=== PATIENT | male | born 1955 | race Caucasian/White ===

== ENCOUNTER 2020-10-24 07:09 | Outpatient (RCR) | payer BC, MEDICARE ==
[~2020-10-24] VITALS: Ht 188 cm; Wt 88.0 kg
[2020-10-28] MEDS ORDERED: OMEP40CA6 PO (13:49)
[2020-11-05] MEDS ORDERED: PANT40TA2 PO (13:39)
[2020-11-05] MEDS ORDERED: SUCR1TAB36 PO (13:39)
== END 2020-11-04 10:37 | disposition home or self-care (01) ==
LOC: PREOP 07:09
PROVIDERS: ATTEND Surgery
DX: Z01.818 Encounter for other preprocedural examination (principal)

== ENCOUNTER 2020-11-05 12:30 | Day surgery (SDC) | payer BC, MEDICARE ==
[2020-11-05] VITALS (8 sets, daily range): BP systolic 107–142; BP diastolic 68–80
[~2020-11-05] VITALS: Ht 188 cm; Wt 88.0 kg
[~2020-11-05 12:30] MED LIST: OMEP40CA6 PO
[2020-11-05] MEDS ORDERED: LACTATED RINGERS 1,000 ML IV STA (12:31)
[2020-11-05] MEDS ORDERED: LACTATED RINGERS 1,000 ML IV ONE (12:37)
--- NOTE | 2020-11-05 12:39 | Progress Note-Pre Operative ---
Pre-Operative Progress Note H&P Reviewed The H&P was reviewed, patient examined and no changes noted. Date Seen by Provider: Nov 05, 2020 Time Seen by Provider: 12:39 Date H&P Reviewed: Nov 05, 2020 Time H&P Reviewed: 12:39 Pre-Operative Diagnosis: dysphagia, hx of polyps ROMANA GARCIA DO Nov 05, 2020 12:39
[2020-11-05] MEDS ORDERED: MIDAZOLAM 2 MG/2 ML (VERSED) VIAL ONE (12:44)
[2020-11-05] MEDS ORDERED: PROPOFOL INJECTION 50 ML IV ONE ×2 (12:45→13:19)
[2020-11-05] MEDS ORDERED: HURRICAINE EXT TUBE (BENZOCAINE) XX PRN (12:45)
[2020-11-05] MEDS ORDERED: SUCR1TAB36 PO (13:39)
[2020-11-05] MEDS ORDERED: PANT40TA2 PO (13:39)
--- NOTE | 2020-11-05 13:39 | Discharge Inst-Simple/Standard ---
Discharge Inst-Standard Discharge Medications New, Converted or Re-Newed RX: Transmitted to Pharmacy Patient Instructions/Follow Up Plan of Care/Instructions/FU: 2-3 weeks Kassidy Activity as Tolerated: Yes Discharge Diet: Regular Diet ROMANA GARCIA DO Nov 05, 2020 13:39
--- NOTE | 2020-11-05 13:41 | Progress Note-Post Operative ---
Post-Operative Progess Note Surgeon (s)/Solar Installation Crew Supervisor (s) Surgeon ROMANA GARCIA DO Solar Installation Crew Supervisor: na Pre-Operative Diagnosis dysphagia, hx of polyps Post-Operative Diagnosis erosive esophagitis, diverticulosis, internal hemorrhoids, colon polyps Procedure & Operative Findings Date of Procedure 11/05/20 Procedure Performed/Findings egd c biopsies, colonoscopy with hot bx polypectomy x 6 Anesthesia Type per map and chart mounter Estimated Blood Loss Estimated blood loss (mL): none Specimens/Packing Specimens Removed antrum, ge, colon polyps ROMANA GARCIA DO Nov 05, 2020 13:41
--- NOTE | 2020-11-05 14:36 | Anesthesia-General Post-Op ---
MAC Patient Condition Mental Status/LOC: Same as Preop Cardiovascular: Satisfactory Nausea/Vomiting: Absent Respiratory: Satisfactory Pain: Controlled Complications: Absent Post Op Complications Complications None Follow Up Care/Instructions Patient Instructions None needed. Anesthesiology Discharge Order Discharge Order Patient is doing well, no complaints, stable vital signs, no apparent adverse anesthesia problems. No complications reported per nursing. MARÍA YUEN CRNA Nov 05, 2020 14:36
--- NOTE | 2020-11-05 22:24 | OPERATIVE REPORT ---
DATE OF SERVICE: 11/05/2020 PREOPERATIVE DIAGNOSES: Dysphagia and history of polyps. POSTOPERATIVE DIAGNOSES: Erosive esophagitis, diverticulosis, internal hemorrhoids, and colon polyps. PROCEDURES PERFORMED: EGD with biopsies, colonoscopy with hot biopsy polypectomy x6. SURGEON: Romana Yi DO. ANESTHESIA: Per EMERGENCY ROOM RN. ESTIMATED BLOOD LOSS: None. COMPLICATIONS: None. INDICATIONS FOR PROCEDURE: The patient is a 65-year-old male with dysphagia symptoms and history of polyps. He understands the risks and benefits of the procedures and wished to proceed with the procedure. Consent was signed in the chart. DESCRIPTION OF PROCEDURE: The patient was taken to the endoscopy suite and placed in a left lateral recumbent position. Timeout was performed. Scope was inserted in the mouth, down the esophagus, stomach and into the duodenum without difficulty. There were no polyps, masses or ulcerations within the duodenum. Scope was slowly retracted back in the stomach, where it was further insufflated. No polyps, masses or ulcerations. Biopsy of the antrum was obtained. Scope was retroflexed noting no other pathology. Scope was returned to its normal position, slowly withdrawn to distal esophagus, which had erosive esophagitis appearance. No erosions all the way up to about the mid portion of the esophagus. Multiple biopsies of the GE junction were obtained. Scope was then slowly retracted back until completely removed. Digital rectal exam was performed noting some internal hemorrhoids. No palpable polyps, masses or ulcerations. Scope was inserted in the rectum and advanced all the way to the cecum with minimal difficulty. Prep was adequate. Scope was then slowly retracted back. There were no polyps, masses or ulcerations in the cecum. In the ascending colon, there were three polyps, which hot biopsy polypectomy was performed. Scope was then continuously and slowly retracted back. In the transverse colon, another three polyps were present, which hot biopsy polypectomies were performed. Scope was then continuously and slowly retracted back through the descending colon and sigmoid colon, only noting some diverticulosis. Once in the rectum, scope was retroflexed noting some hemorrhoids. No other pathology. Scope was returned to its normal position, slowly withdrawn until completely removed. The patient tolerated the procedure well without any complications and taken to the recovery room in stable condition. RECOMMENDATIONS: The patient will be switched from omeprazole to Protonix 40 mg daily and started on Carafate 1 gram four times a day. We will follow up in the office on pathology in about three weeks. Repeat colonoscopy in five years. Any issues before that be seen at that time. CC: Dr. Estevez -- requested, unable to deliver. Job ID: [id number] DocumentID: [id number] Dictated Date: 11/05/2020 13:43:42 Cyber Workforce Developer And Manager Date: 11/05/2020 21:28:30 Dictated By: ROMANA YI DO
== END 2020-11-05 14:40 | disposition home or self-care (01) ==
LOC: ENDO 12:30
PROVIDERS: ATTEND Surgery
DX: Z12.11 Encounter for screening for malignant neoplasm of colon (principal); D12.2 Benign neoplasm of ascending colon; D12.3 Benign neoplasm of transverse colon; K57.30 Diverticulosis of large intestine without perforation or abscess without bleeding; K64.8 Other hemorrhoids; K22.10 Ulcer of esophagus without bleeding; K21.00 Gastro-esophageal reflux disease with esophagitis, without bleeding; Z87.891 Personal history of nicotine dependence; Z20.822 Contact with and (suspected) exposure to COVID-19
CPT/HCPCS: 87635

== ENCOUNTER → 2021-07-31 | Outpatient (CLI) | payer MEDICARE ==
[~2021-07-31] MED LIST changes: +PANT40TA2 PO; +SUCR1TAB36 PO
--- NOTE | 2021-07-31 12:49 | Diagnostic Imaging Report ---
PROCEDURE: CT head without contrast. TECHNIQUE: Multiple contiguous axial images were obtained through the brain without the use of intravenous contrast. Auto Exposure Controls were utilized during the CT exam to meet ALARA standards for radiation dose reduction. INDICATION: Bilateral leg weakness. COMPARISON: No prior studies are available for comparison. FINDINGS: Ventricles and sulci are within normal limits. No sulcal effacement or midline shift is identified. No acute intra-axial or extra-axial hemorrhage is detected. Cisterns are patent. Visualized paranasal sinuses demonstrate mucosal thickening of the right maxillary sinus. There is near-complete opacification of the left maxillary sinus. There is mucosal thickening and opacified multiple ethmoid air cells. The frontal sinus and mastoid air cells are well aerated. IMPRESSION: 1. No acute intracranial process detected. 2. Paranasal sinus disease, most marked involving the left maxillary sinus. Dictated by: Dictated on workstation # [id number]
== END ==
LOC: RAD 12:05
PROVIDERS: ATTEND Internal Medicine
DX: J32.9 Chronic sinusitis, unspecified (principal); R53.1 Weakness
CPT/HCPCS: 70450

== ENCOUNTER → 2021-08-13 | Outpatient (CLI) | payer MEDICARE ==
[~2021-08-13] MED LIST changes: +GADOTERATE 0.5 MMOL/ML (CLARISCAN) 15 ML VIAL IV ONE
--- NOTE | 2021-08-13 10:09 | Diagnostic Imaging Report ---
CLINICAL INDICATION: Patient was working on cabinet approximately 3 months ago and has neck pain and bilateral arm numbness. Exam: MRI of the cervical spine performed without and with 15 mL of Clariscan IV contrast. Sequences include sagittal T1, sagittal T2, sagittal T2 fat-sat, axial T2, axial T1, axial T1 post IV contrast, and sagittal T1 fat-sat post IV contrast. Comparison: None. Findings: Besides degenerative changes, there is no significant abnormal IV contrast enhancement. Limited visualization of posterior fossa and cervical spinal cord shows no abnormal enhancement. There is deformity of the cervical cord seen at the C4-C5 level. There is increase amorphous and subtle increased T2 signal involving the cord at C4-C5 level. This may be related to cord contusion and/or myelomalacia. The remainder of the cervical spinal cord is unremarkable. There is no significant paraspinal soft tissue abnormality. C1-C2: There are degenerative spurs involving the atlantoodontoid interval anteriorly. There is no significant central canal narrowing. C2-C3: There are small vertebral spurs posteriorly. There is mild bilateral facet arthropathy. There is moderate central canal stenosis. There is at least moderate right neural foramen narrowing and mild left neural foramen narrowing. C3-C4: There is a small posterior disk bulge and bilateral facet arthropathy. There are bilateral uncinate spurs. There is severe bilateral neural foramen narrowing with left-sided worse right. There is severe central canal stenosis. C4-C5: There is a diffuse disk bulge with superimposed left paracentral/left subarticular disk extrusion/herniation. There is facet arthropathy and moderate bilateral facet arthropathy. There is severe central canal stenosis and severe bilateral neural foramen narrowing. There is marked encroachment and deformity of the cervical cord seen at this level, as described above. C5-C6: There is diffuse disk bulge with severe loss of disk space height. There is mild bilateral facet arthropathy. There are bilateral uncinate spurs. There is severe bilateral neural foramen narrowing. There is mild to moderate central canal stenosis. C6-C7: There is a diffuse disk bulge, mild loss of disk space height and bilateral uncinate spurs. There is moderate central canal stenosis. There is severe bilateral neural foramen narrowing. C7-T1: There is diffuse disk bulge moderate loss of disk space height. There are disk spurs posteriorly and bilateral uncinate spurs. There is severe bilateral neural foramen narrowing. There is moderate central canal stenosis. IMPRESSION: 1: There is moderate to severe multilevel cervical spine degenerative disk disease which is worse at the C4-C5 level. This is described detailed above. 2: There is a C4-C5 diffuse disk bulge with superimposed left paracentral/subarticular disk extrusion/herniation, ligamentum flavum buckling and bilateral facet arthropathy. There is severe central canal stenosis and severe bilateral neural foramen narrowing. There is marked encroachment and deformity of the cervical cord at C4-C5 level with a small amount of intramedullary high T2 signal which may related to cord contusion versus myelomalacia. Dictated by: Dictated on workstation # [id number]
== END ==
LOC: RAD 08:00
PROVIDERS: ATTEND Nurse Practitioner Family
DX: M50.13 Cervical disc disorder with radiculopathy, cervicothoracic region (principal); M48.03 Spinal stenosis, cervicothoracic region; M46.03 Spinal enthesopathy, cervicothoracic region; M47.22 Other spondylosis with radiculopathy, cervical region
CPT/HCPCS: 72156